=== PATIENT | male | born 1990 | race Two or more races ===

== ENCOUNTER 2019-09-04 05:26 | Emergency (ER) | payer OTHER, MEDICAID ==
[~2019-09-04] VITALS: Ht 180.3 cm; Wt 77.1 kg
[2019-09-04 05:30] VITALS: BP 124/80
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
[2019-09-04 06:08] VITALS: BP 122/84
--- NOTE | 2019-09-04 06:08 | NUR ---
ER DISCHARGE NOTE: Patient is cleared to be discharged into [employer] custody per ERMD, pt is aox4, 100% on room air, with stable vital signs. pt was given dc instructions, pt was able to verbalize understanding, pt id band removed. pt is able to ambulate with steady gait. pt took all belongings. Pt accompanied out with [employer]
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
== END 2019-09-04 06:08 ==
LOC: EDBD 05:26 → EMR 05:40
DX: S29.8XXA Other specified injuries of thorax, initial encounter (principal); Y35.833A Legal intervention involving a conducted energy device, suspect injured, initial encounter; Y92.9 Unspecified place or not applicable
CPT/HCPCS: 99282; 99283